=== PATIENT | male | born 1985 ===

== ENCOUNTER 2017-12-15 19:31 | Emergency (ER) | payer OTHER ==
[2017-12-15 20:01] VITALS: BP 137/61; PULSE 68; RESP 16; TEMP 98.2; O2SAT 100
--- NOTE | 2017-12-15 21:20 | ED PDOC ---
Lower Extremity Pain/Injury Time Seen by Provider: 12/15/17 20:07 Chief Complaint (Nursing): Lower Extremity Problem/Injury Chief Complaint (Provider): Right foot pain History Per: Patient History/Exam Limitations: no limitations Additional Complaint(s): 32yo male, presents to ER for evaluation of right 1st toe pain after he injured it on a block of ice. Patient was evaluated by a machine stuffer automatic Dr. Toro Coyne and was advised to come to the ER for a possible surgery. Otherwise, no weakness , numbness, knee pain or other injuries. Past Medical History Reviewed: Historical Data, Nursing Documentation, Vital Signs Vital Signs: Last Vital Signs Temp 98.2 F 12/15/17 20:01 Pulse 68 12/15/17 20:01 Resp 16 12/15/17 20:01 BP 137/61 12/15/17 20:01 Pulse Ox 100 12/15/17 20:01 - Medical History PMH: No Chronic Diseases - Surgical History Surgical History: No Surg Hx - Family History Family History: States: No Known Family Hx - Home Medications Home Medications: Ambulatory Orders Medication Instructions Recorded traMADol [Ultram] 50 mg PO TID PRN #15 tab 12/15/17 - Allergies Allergies/Adverse Reactions: Allergies Allergy/AdvReac Type Severity Reaction Status Date / Time No Known Allergies Allergy Verified 12/15/17 19:58 Review of Systems ROS Statement: Except As Marked, All Systems Reviewed And Found Negative Constitutional: Negative for: Fever, Chills Musculoskeletal: Positive for: Foot Pain Physical Exam - Reviewed Nursing Documentation Reviewed: Yes Vital Signs Reviewed: Yes - Physical Exam Comments: GENERAL APPEARANCE: Patient is awake, alert, oriented x 3, in no acute distress. SKIN: Warm, dry; (-) cyanosis. LOWER EXTREMITY: Swelling and tenderness noted to right first toe. No deformity. Distal senses normal. Capillary refill normal. Normal pulses. CARDIOVASCULAR: (+) distal pulse. NEUROLOGIC: (+) distal sensation. - Laboratory Results Result Diagrams: 12/15/17 21:15 12/15/17 21:15 - ECG O2 Sat by Pulse Oximetry: 100 (RA) Pulse Ox Interpretation: Normal Medical Decision Making Medical Decision Making: Impression: Right first toe injury with fracture Plan: -- Podiatry consult -- Labs -- XR right foot Orders placed. Patient kept NPO. XR R foot : +comminuted fracture of the 1st proximal phalanx, no dislocation, as read by CYDNEY. Labs reviewed and are wnl. Case d/w podiatry resident Dr. Gavin, who will come and evaluate the patient. Patient seen and evaluated by podiatry resident. After his evaluation, decision was made for outpt f/u, he recommends no surgery at this time, considering XR findings. John wrap and boot placed to the R foot by resident. Advised to follow up with podiatry referral in 1-2 days without fail. Advised RICE, and to take medication as prescribed. Return to the emergency room at any time for any new or worsening symptoms. Patient states he fully agrees with and understands discharge instructions. States that he agrees with the plan and disposition. Verbalized and repeated discharge instructions and plan. I have given the patient opportunity to ask any additional questions. Scribe Attestation: Documented by Ирина Santos acting as a scribe for Leti Marin PA-C. Provider Attestation: All medical record entries made by the Scribe were at my direction and personally dictated by me. I have reviewed the chart and agree that the record accurately reflects my personal performance of the history, physical exam, medical decision making, and the department course for this patient. I have also personally directed, reviewed, and agree with the discharge instructions and disposition. Disposition - Clinical Impression Clinical Impression: Toe fracture, right - Patient ED Disposition Is Patient to be Admitted: No Counseled Patient/Family Regarding: Studies Performed, Diagnosis, Need For Followup, Rx Given - Disposition Referrals: Dereck Higginbotham MD [Staff Provider] - Disposition: Routine/Home Disposition Time: 21:00 Condition: STABLE Additional Instructions: Thank you for letting us take care of you today. You were treated for R 1st toe fracture. The emergency medical care you received today was directed at your acute symptoms. If you were prescribed any medication, please fill it and take as directed. It may take several days for your symptoms to resolve. Return to the Emergency Department if your symptoms worsen, do not improve, or if you have any other problems. Please contact your foot doctor in 2 days for re-evaluation and follow up. Bring any paperwork you were given at discharge with you along with any medications you are taking to your follow up visit. Our treatment cannot replace ongoing medical care by a primary care provider (PCP) outside of the emergency department. Thank you for allowing the [facility] team to be part of your care today. If you had an X-Ray or CT scan: A Radiologist will review the ED reading if any change in treatment is needed we will contact you. 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
--- NOTE | 2017-12-15 21:22 | CP.PCM.CON ---
History of Present Illness - History of Present Illness History of Present Illness: 32 year old male seen in [facility] ED, referred to emergency department by attending , MARIELENA SureshM for pedal evaluation of right toe fracture. Pt reports earlier today in early afternoon he kicked a block of ice, he felt severe pain and fearing he broke hes great toe, followed up with home weatherizing worker Dr. Toro Coyne in his office for evalaution. Dr. Coyne performed x-rays on pt, noted displaced comminuted hallux, and referred pt to [facility] ED for podiatry residents to evaluate and potential pursue advance intervention methods. Pt comes with stiffness and pain to great toe graded 7/10. Pt comes with printed radiographs from Dr. Coyne's office. Pt has no other pedal complains. Pt denies recent n/ v/f/c/cp/sob/dizziness. Pt reports eating around 3 pm this afternoon. PMH: Denies remarkable history. PSH: Denies All: NKDA Soc Hx: Homed. Denies tobacco, illicit drug, and alcohol use. Review of Systems - Review of Systems All systems: reviewed and no additional remarkable complaints except Past Patient History - Past Social History Smoking Status: Never Smoked - CARDIAC Hx Cardiac Disorders: No - INTEGUMENTARY Hx Dermatological Problems: No - MUSCULOSKELETAL/RHEUMATOLOGICAL Hx Musculoskeletal Disorders: No - GENITOURINARY/GYNECOLOGICAL Hx Genitourinary Disorders: No - PSYCHIATRIC Hx Psychophysiologic Disorder: No Hx Substance Use: No - SURGICAL HISTORY Hx Surgeries: No - ANESTHESIA Hx Anesthesia: No Meds Home Medications: Home Medication List Medication Instructions Recorded Confirmed Type traMADol [Ultram] 50 mg PO TID PRN #15 tab 12/15/17 Rx Allergies/Adverse Reactions: Allergies Allergy/AdvReac Type Severity Reaction Status Date / Time No Known Allergies Allergy Verified 12/15/17 19:58 Physical Exam - Constitutional Appears: Well, Non-toxic, No Acute Distress - Extremities Exam Additional comments: RIght foot focused. Neuro-vascular status intact. Tender hallux noted with accompanying moderate non-pitting edema. No gross dislocation, angulation deformitiy, nor shortening, noted compared to contra- lateral hallux. No noted prominences noted. No inherent instability or reproducible dislocation noted to hallux. - Neurological Exam Neurological exam: Alert, Oriented x3 - Psychiatric Exam Psychiatric exam: Normal Affect, Normal Mood Results - Vital Signs Recent Vital Signs: Last Vital Signs Temp 98.2 F 12/15/17 20:01 Pulse 68 12/15/17 20:01 Resp 16 12/15/17 20:01 BP 137/61 12/15/17 20:01 Pulse Ox 100 12/15/17 21:20 - Labs Result Diagrams: 12/15/17 21:15 12/15/17 21:15 Assessment & Plan - Assessment and Plan (Free Text) Assessment: 32 year old male with right proximal phalynx closed, comminuted, non-displaced, extra-articular fracture. Plan: Pt seen and evaluated. Chart, labs, and vitals reviewed. Prior outpatient radiographs reviewed, noted saggital plane displaced lateral comminuted fracture component. Length and frontal alignment and lenght maintained. Ordered inhouse radiographs, compared to outpatient films: Noted non-displaced fracture components, anatomical alignment and lenght maintained. Likely spontaneous reduction of displaced component secondary to interm ambulation and edema. Discussed with attending Dr. Higginbotham who endorsed the following plan. No indication for closed reduction at this time. Discussed with pt conservative and potential surgical intervention options at this time. Presentation is non emergent and discussed with patient can be performed on out patient basis. Discussed likelihood of resolution with minimal complication if cocervative or surgical intervention path chosen. Pt opted for conservative management at this time, with option to pursue surgical intervention on outpatient follow-up visits. applied compressive Zara dressing, and post-op shoe applied. Directed pt to be partial weightbearing to right heel during ambulation. Pain contorl via Tylenol Extra strength. RICE therapy prescribed. Pt to follow-up with Dr. Higginbotham - Date & Time Date: 12/15/17 Time: 09:40
[2017-12-15 21:31] LABS: BASO # 0.1 K/uL (0.0-0.2); BASO % 0.8 % (0.0-2.0); EOS # 0.5 K/uL (0.0-0.7); EOS % 5.4 % (0.0-4.0); HEMOGLOBIN 14.1 g/dL (12.0-18.0); LYMPH # 3.6 K/uL (1.0-4.3); LYMPH % 38.4 % (20.0-40.0); MEAN CELL VOLUME 93.9 fl (80.0-94.0); MEAN CORPUSCULAR HGB CONC 33.1 g/dL (33.0-37.0); MEAN PLATELET VOLUME 9.7 fl (7.2-11.7); MONO # 0.7 K/uL (0.0-0.8); MONO % 7.9 % (0.0-10.0); NEUT # 4.4 K/uL (1.8-7.0); NEUT % 47.5 % (50.0-75.0); NRBC % 0.1 % (0.0-0.0); RBC 4.55 Mil/uL (4.40-5.90); RED CELL DISTRIBUTION WIDTH 13.1 % (11.5-14.5); WHITE BLOOD COUNT 9.3 K/uL (4.8-10.8)
[2017-12-15 21:47] LABS: ALB/GLOB RATIO 1.3 (1.0-2.1); ALBUMIN 4.3 g/dL (3.5-5.0); ALT/SGPT 45 U/L (21-72); AST/SGOT 29 U/L (17-59); BLOOD UREA NITROGEN 8 mg/dl (9-20); CALCIUM 9.4 mg/dL (8.4-10.2); GFR AFRICAN-AMERICAN > 60; GFR NON-AFRICAN AMERICAN > 60
[2017-12-15 22:35] LABS: PARTIAL THROMBOPLASTIN TIME 32.7 Seconds (25.6-37.1); PROTHROMBIN TIME 10.9 Seconds (9.8-13.1)
--- NOTE | 2017-12-16 08:08 | RAD ---
PROCEDURE: Right Foot Radiographs. HISTORY: trauma 1st toe COMPARISON: None. FINDINGS: BONES: There is a comminuted nondisplaced fracture of the distal half of the right great toe proximal phalanx which may be articular. No subluxation or dislocation. Remaining bony elements of the right foot appear intact as imaged. JOINTS: No dislocation or subluxation. SOFT TISSUES: Normal. OTHER FINDINGS: None. IMPRESSION: Comminuted, nondisplaced fracture distal segment proximal phalanx right great toe without dislocation. Articular involvement is not excluded.
== END 2017-12-15 22:40 | disposition home or self-care (01) ==
LOC: H.ER 19:31
DX: S92.401A Displaced unspecified fracture of right great toe, initial encounter for closed fracture (principal); W22.8XXA Striking against or struck by other objects, initial encounter; Y92.9 Unspecified place or not applicable